=== PATIENT | male | born 1955 | race Caucasian/White ===

== ENCOUNTER 2017-09-09 08:29 | Day surgery (SDC) | payer BC ==
[2017-09-09] MEDS ORDERED: NS 1,000 ML IV (08:45)
[2017-09-09] MEDS ORDERED: PROPOFOL 200 MG/20 ML VIAL As Ordered (10:09)
== END 2017-09-09 10:38 | disposition home or self-care (01) ==
LOC: M OPP 08:29
DX: Z12.11 Encounter for screening for malignant neoplasm of colon (principal); Z86.010 Personal history of colon polyps; D12.2 Benign neoplasm of ascending colon; D12.0 Benign neoplasm of cecum; K64.0 First degree hemorrhoids; K57.30 Diverticulosis of large intestine without perforation or abscess without bleeding; I10 Essential (primary) hypertension; E78.5 Hyperlipidemia, unspecified; G47.30 Sleep apnea, unspecified; Z79.899 Other long term (current) drug therapy; Z80.42 Family history of malignant neoplasm of prostate
CPT/HCPCS: 45385

== ENCOUNTER 2018-11-17 11:14 | Day surgery (SDC) | payer BC ==
[~2018-11-17] VITALS: Ht 180.3 cm; Wt 134.2 kg
[~2018-11-17 11:14] MED LIST: ATOR1TAB19 PO; LISI40TA PO; LR 1,000 ML IV ONE; MULTCAP PO; dexameTHASONE 4 MG/ML 1ML VIAL (J1100) IV ONE
[2018-11-17 11:40] LABS: HEMATOCRIT 43.4 % (42.0-52.0); HEMOGLOBIN 14.9 g/dl (13.5-17.5); MEAN CORPUSCULAR HEMOGLOBIN 32.7 pg (27.0-33.0); MEAN CORPUSCULAR HGB CONC 34.3 g/dl (32.0-36.5); MEAN CORPUSCULAR VOLUME 95.2 fl (80.0-96.0); PLATELET COUNT, AUTOMATED 247 10^3/uL (150-450); RED BLOOD COUNT 4.56 10^6/uL (4.30-6.10); WHITE BLOOD COUNT 7.5 10^3/uL (4.0-10.0)
[2018-11-17 12:00] LABS: BLOOD UREA NITROGEN 19 MG/DL (7-18); CALCIUM LEVEL 9.4 MG/DL (8.8-10.2); CARBON DIOXIDE LEVEL 32 MEQ/L (21-32); CHLORIDE LEVEL 102 MEQ/L (98-107); CREATININE FOR GFR 1.08 MG/DL (0.70-1.30); GLOMERULAR FILTRATION RATE > 60.0 (>49); GLUCOSE, FASTING 102 MG/DL (70-100); POTASSIUM SERUM 4.9 MEQ/L (3.5-5.1); SODIUM LEVEL 138 MEQ/L (136-145)
[2018-11-17] MEDS ORDERED: PROPOFOL 200 MG/20 ML VIAL As Ordered ONE (12:34)
[2018-11-17] MEDS ORDERED: dexameTHASONE 4 MG/ML 1ML VIAL (J1100) As Ordered ONE (12:34)
[2018-11-17] MEDS ORDERED: ROCURONIUM BROMIDE 50 MG/5 ML VIAL As Ordered ONE ×2 (12:34→13:02)
[2018-11-17] MEDS ORDERED: LIDOCAINE 2% INJ 100 MG/5 ML SDV (FOR ANES.) As Ordered ONE (12:34)
[2018-11-17] MEDS ORDERED: ONDANSETRON 4MG/2ML VIAL (J2405) As Ordered ONE (12:34)
[2018-11-17] MEDS ORDERED: fentaNYL 100 MCG/2 ML INJECTION (J3010) As Ordered ONE (12:40)
[2018-11-17] MEDS ORDERED: MIDAZOLAM INJ 2 MG/2 ML VIAL (J2250) As Ordered ONE (12:40)
[2018-11-17] MEDS ORDERED: LIDOCAINE W/EPINEPHRINE 1% 20ML VIAL As Ordered ONE (16:16)
[2018-11-17] MEDS ORDERED: BACITRACIN OINT 30GM As Ordered ONE (16:16)
[2018-11-17 17:55] VITALS: BP 139/69
--- NOTE | 2018-11-18 00:52 | ECGEPIP ---
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
--- NOTE | 2018-12-02 14:40 | RO ---
DATE OF PROCEDURE: 11/17/2018 PREPROCEDURE DIAGNOSIS: Cutaneous basal cell carcinoma over the left mandibular area. POSTOPERATIVE DIAGNOSIS: Cutaneous basal cell carcinoma over the left mandibular area. PROCEDURE: Excision of the cutaneous basal cell carcinoma left mandibular area 2.8 x 1.7 cm. SURGEON: Dr. Jt Preston [employer]ER: ANESTHESIA: Local. CLINICAL PREAMBLE: This 63-year-old man presented to the office with a history of slowly enlarging cutaneous lesion over the left mandible. Biopsy done by the primary care physician's office showed evidence of basal cell carcinoma. Management options include an excision of the basal cell carcinoma over the left mandibular area have been discussed and the patient has consented to the procedure. OPERATING ROOM (OR) NARRATION: Patient was identified in pre-holding and had the left mandible marked. He was brought to the operating room in stable condition. In the spine position on the operating table, patient received local sedation by the anesthesiology team. Patient was then prepped and draped in the usual fashion to expose the left mandibular area. The lesion was visualized and marked. The entire surgical specimen including margin measured 2.8 x 1.7 cm. The margin was infiltrated with 1% lidocaine with 1:100,000 epinephrine. Incision was then made sharply down to the level of the subcutaneous tissue. The entire specimen was successfully excised en bloc. 12-o'clock position, which was anterior margin, was marked with a suture with two suture ends and 3 o'clock position, which indicated the superior portion of the margin with one end of the suture end. Hemostasis was achieved using bipolar electrocautery. The skin edge was then re-approximated using #5-0 Prolene. Bacitracin was applied over the incision site. At the end of the procedure, sponge and instrument counts were correct. No complications. Estimated blood loss was less than 1 mL. Local sedation was reversed and patient was brought to the recovery room in stable condition.
== END 2018-11-17 18:03 | disposition home or self-care (01) ==
LOC: M SDC 11:14
PROVIDERS: ATTEND Otolaryngology
DX: C44.319 Basal cell carcinoma of skin of other parts of face (principal); G47.30 Sleep apnea, unspecified; I10 Essential (primary) hypertension; E78.5 Hyperlipidemia, unspecified; Z79.899 Other long term (current) drug therapy
CPT/HCPCS: 11643; 36415; 80048; 85027; 88305; 93005; J1100; J2250; J2405; J3010

== ENCOUNTER 2018-12-13 06:29 | Day surgery (SDC) | payer BC ==
[~2018-12-13] VITALS: Ht 175.3 cm; Wt 132.0 kg
[~2018-12-13 06:29] MED LIST changes: -LR 1,000 ML IV ONE; +NS 1,000 ML IV ONE; -dexameTHASONE 4 MG/ML 1ML VIAL (J1100) IV ONE
[2018-12-13] MEDS ORDERED: LIDOCAINE 2% INJ 100 MG/5 ML SDV (FOR ANES.) As Ordered ONE (07:13)
[2018-12-13] MEDS ORDERED: PROPOFOL 200 MG/20 ML VIAL As Ordered ONE (07:13)
--- NOTE | 2018-12-13 07:58 | ROOR ---
Patient Name: Justin Lu Procedure Date: 12/13/2018 7:31 AM Date of : 1955 Age: 63 Room: [facility] Gender: Male Note Status: Finalized Procedure: Total Colonoscopy to Cecum + Biopsy Polypectomy Indications: High risk colon cancer surveillance: Personal history of colonic polyps, High risk colon cancer surveillance: Personal history of adenoma with villous component Providers: True Trujillo MD Referring MD: QUINTON CUNNINGHAM DO Requesting Provider: Medicines: Monitored Anesthesia Care Complications: No immediate complications. Procedure: Pre-Anesthesia Assessment: - The heart rate, respiratory rate, oxygen saturations, blood pressure, adequacy of pulmonary ventilation, and response to care were monitored throughout the procedure. The Colonoscope was introduced through the anus and advanced to the cecum, identified by appendiceal orifice and ileocecal valve. The colonoscopy was performed without difficulty. The patient tolerated the procedure well. The quality of the bowel preparation was excellent. Findings: The perianal and digital rectal examinations were normal. Non-bleeding internal hemorrhoids were found during retroflexion. The hemorrhoids were small and Grade I (internal hemorrhoids that do not prolapse). Scattered small-mouthed diverticula were found in the recto-sigmoid colon, sigmoid colon and descending colon. Multiple sessile polyps were found in the cecum. The polyps were diminutive in size. These polyps were removed with a cold biopsy forceps. Resection and retrieval were complete. The exam was otherwise without abnormality on direct and retroflexion views. Impression: - Non-bleeding internal hemorrhoids. - Diverticulosis in the recto-sigmoid colon, in the sigmoid colon and in the descending colon. - Multiple diminutive polyps in the cecum, removed with a cold biopsy forceps. Resected and retrieved. - The examination was otherwise normal on direct and retroflexion views. - The exam was otherwise normal to the cecum. Recommendation: - Patient has a contact number available for emergencies. The signs and symptoms of potential delayed complications were discussed with the patient. Return to normal activities tomorrow. Written discharge instructions were provided to the patient. - High fiber diet. - Discharge patient to home. - Continue present medications. - Await pathology results. - Telephone GI clinic for pathology results in 1 week. - Repeat colonoscopy in 5 years for surveillance based on pathology results. - Return to referring physician. - The findings and recommendations were discussed with the patient's family. True Trujillo MD True Trujillo MD 12/13/2018 7:58:11 AM Electronically signed by True Trujillo MD Number of Addenda: 0 Note Initiated On: 12/13/2018 7:31 AM Estimated Blood Loss: Estimated blood loss: none.
[2018-12-13 08:20] VITALS: BP 122/57
== END 2018-12-13 08:21 | disposition home or self-care (01) ==
LOC: M OPP 06:29
PROVIDERS: ATTEND Internal Medicine Gastroenterology
DX: Z86.010 Personal history of colon polyps (principal); K64.0 First degree hemorrhoids; D12.0 Benign neoplasm of cecum; K57.30 Diverticulosis of large intestine without perforation or abscess without bleeding; E78.00 Pure hypercholesterolemia, unspecified; G47.30 Sleep apnea, unspecified

== ENCOUNTER → 2020-02-01 | Outpatient (CLI) | payer SELFPAY ==
[~2020-02-01] MED LIST changes: -NS 1,000 ML IV ONE
== END ==
LOC: M LABSMTC 09:57
PROVIDERS: ATTEND Pediatrics
DX: Z20.828 Contact with and (suspected) exposure to other viral communicable diseases (principal)

== ENCOUNTER 2022-12-15 06:36 | Day surgery (SDC) | payer MEDICARE ==
[~2022-12-15] VITALS: Ht 177.8 cm; Wt 142.9 kg
[~2022-12-15 06:36] MED LIST changes: +JARD1TAB3 PO; -LISI40TA PO; +LISI40TA4 PO; +NS 1,000 ML IV ONE; +VITMTA PO
[2022-12-15] MEDS ORDERED: LIDOCAINE 2% 100MG/5ML SDV (FOR ANES.) As Ordered ONE (08:18)
[2022-12-15] MEDS ORDERED: propofoL 200 MG/20 ML VIAL As Ordered ONE ×2 (08:18→08:29)
[2022-12-15 08:34] VITALS: BP 117/61; TEMP 98.4; O2SAT 94
== END 2022-12-15 08:37 | disposition home or self-care (01) ==
LOC: M OPP 06:36
PROVIDERS: ATTEND Internal Medicine Gastroenterology
DX: Z86.010 Personal history of colon polyps (principal); D12.0 Benign neoplasm of cecum; D12.3 Benign neoplasm of transverse colon; K64.0 First degree hemorrhoids; K57.30 Diverticulosis of large intestine without perforation or abscess without bleeding; Z79.02 Long term (current) use of antithrombotics/antiplatelets; Z79.84 Long term (current) use of oral hypoglycemic drugs; Z79.899 Other long term (current) drug therapy; G47.30 Sleep apnea, unspecified; Z99.89 Dependence on other enabling machines and devices